=== PATIENT | female | born 1980 | race Caucasian/White ===

== ENCOUNTER 2017-08-02 18:41 | Emergency (ER) | payer OTHER ==
[2017-08-02 18:55] VITALS: BP 138/82; PULSE 98; TEMP 98.4; BMI 27.6
--- NOTE | 2017-08-02 18:59 | PDOC ---
History of Present Illness - General Chief Complaint: Chest Pain Stated Complaint: CHEST PAIN/muscle pain Time Seen by Provider: 08/02/17 18:57 History Source: Patient Exam Limitations: No Limitations - History of Present Illness Initial Comments: 08/02/17 18:59 CHIEF COMPLAINT: Chest pain HISTORY OF PRESENT ILLNESS: This is a 36 year old female with a history of BPD and asthma who presents for evaluation of 3 days of chest pain. Pain started while at rest. It is constant but worse with movement or deep breathing. She has productive cough. She denies shortness of breath. No calf pain, recent travel/trauma/surgery, hemoptysis, OCP use, cigarette smoking, or family/personal history of DVT/PE. V/s on arrival are notable for P 98. Past History - Past Medical History Allergies/Adverse Reactions: Allergies Allergy/AdvReac Type Severity Reaction Status Date / Time No Known Allergies Allergy Verified 08/02/17 18:55 Home Medications: Ambulatory Orders Albuterol Sulfate Inhaler - [Ventolin HFA Inhaler -] 1 - 2 inh PO DAILY PRN 09/14 Quetiapine Fumarate [Seroquel -] 100 mg PO HS 04/10/14 [place] Citrate [[place]] 8 meq PO ASDIR 08/02/17 Lorazepam [Ativan] 1 mg PO ASDIR 08/02/17 Miconazole/Cleanser 17 On Wipe [Monistat 3 Combo Pack] 1 each VG HS #1 kit 08/02 Asthma: Yes Psychiatric Problems: Yes (bipolar,anxiety) - Reproductive History (#): 2 Para: 0 - Psycho/Social/Smoking Cessation Hx Anxiety: No Suicidal Ideation: No Smoking Status: No Smoking History: Never smoked Number of Cigarettes Smoked Daily: 0 Information on smoking cessation initiated: No Hx Alcohol Use: No Drug/Substance Use Hx: No Substance Use Type: None Review of Systems - Review of Systems Constitutional: No: Chills, Fever, Unintentional Wgt. Loss Respiratory: Yes: Cough. No: Shortness of Breath, Wheezing, Hemoptysis Cardiac (ROS): Yes: Chest Pain. No: Lightheadedness, Palpitations ABD/GI: No: Symptoms Reported : Yes: Discharge (white) *Physical Exam - Vital Signs Last Vital Signs Temp Pulse Resp BP Pulse Ox 98.4 F 98 H 18 138/82 100 08/02/17 18:53 08/02/17 18:53 08/02/17 18:53 08/02/17 18:53 08/02/17 18:53 - Physical Exam General Appearance: Yes: Nourished, Moderate Distress Respiratory/Chest: positive: Lungs Clear, Normal Breath Sounds. negative: Respiratory Distress Cardiovascular: positive: Regular Rate, S1, S2 Female Pelvic Exam: positive: normal external exam, discharge (thick, white, nonmalodorous). negative: adnexal tenderness Gastrointestinal/Abdominal: positive: Soft. negative: Distended, Tenderness Heart Score/ECG Review - History History: Slightly suspicious - Electrocardiogram EKG: Normal - Age Age: </= 45 - Risk Factors Based on the list above the patient has:: No risk factors known - ECG Intrepretation Rhythm: Regular Rhythm Comment:: 08/02/17 19:00 NSR at 98bpm ED Treatment Course - RADIOLOGY Radiology Studies Ordered: Category Date Time Status CHEST PA & LAT [RAD] Stat Radiology 08/02/17 18:58 Ordered Medical Decision Making - Medical Decision Making 08/02/17 19:44 A/P: 36 year old female with chest pain, pleuritic and reproducible. -EKG: NSR 98bpm -CXR -PERC negative -Toradol for pain -Diflucan for vaginal candidiasis *DC/Admit/Observation/Transfer Diagnosis at time of Disposition: Atypical chest pain - Discharge Dispostion Disposition: HOME Condition at time of disposition: Stable - Prescriptions Prescriptions: Miconazole/Cleanser 17 On Wipe [Monistat 3 Combo Pack] 1 each VG HS #1 kit - Referrals Referrals: Marcelle Jameson MD [Staff Physician] - Call tomorrow - Patient Instructions Printed Discharge Instructions: DI for Atypical Chest Pain Additional Instructions: -Use Monistat as prescribed for yeast infection -Take ibuprofen as prescribed for pain -Follow up with your primary care doctor, or the doctor listed above, early next week -Return here for difficulty breathing, worsening chest pain, coughing up blood, fainting/near fainting, or any other concerning symptoms
[2017-08-02] MEDS ORDERED: KETOROLAC TROMETHAMINE 30 MG/1 ML VIAL IM ONE (19:35)
[2017-08-02 19:47] LABS: URINE APPEARANCE CLEAR; URINE BILIRUBIN 1+ (NEGATIVE); URINE COLOR YELLOW; URINE GLUCOSE (UA) NEGATIVE (NEGATIVE); URINE KETONE TRACE (NEGATIVE); URINE LEUK ESTERASE NEGATIVE (NEGATIVE); URINE NITRITE NEGATIVE (NEGATIVE); URINE PROTEIN TRACE (NEGATIVE); URINE UROBILINOGEN 0.2 mg/dL (0.2-1.0)
[2017-08-02 19:50] LABS: URINE BLOOD 1+ (NEGATIVE)
[2017-08-02 19:58] LABS: URINE MUCUS MANY; URINE RBC 5 /hpf (0-3); URINE WBC 7 /hpf (3-5)
[2017-08-02] MEDS ORDERED: KETOROLAC TROMETHAMINE 30 MG/1 ML VIAL ONE (20:06)
--- NOTE | 2017-08-03 13:06 | EKG ---
Test Reason : Blood Pressure : / mmHG Vent. Rate : 098 BPM Atrial Rate : 098 BPM P-R Int : 130 ms QRS Dur : 082 ms QT Int : 338 ms P-R-T Axes : 066 078 040 degrees QTc Int : 431 ms NORMAL SINUS RHYTHM LEFT ATRIAL ABNORMALITY NO PREVIOUS ECGS AVAILABLE REPEAT EKG IF CLINICALLY INDICATED Confirmed by ALVARO HENRY MD ([id number]) on 08/03/2017 1:05:57 PM Referred By: Confirmed By:ALVARO HENRY MD
--- NOTE | 2017-08-05 10:14 | PDOC ---
Patient Follow-up (Call Back) - Post ED Follow - Up Condition at time of discharge: Stable Disposition at time of original discharge: HOME Signs/Symptoms Improved: No - Disposition Rx Needed: Yes Additional Instructions/Notes: Patient seen for vaginal discharge and was told to take cream for treatment of yeast infection. Patient called at home and states discharge continues but denies worsening symptoms. Based on patient's genital culture which showed increased pH and clue cells suggestive of DVT. Patient be given a prescription for Flagyl. Prescription sent to [facility]. Patient made aware.
== END 2017-08-02 20:22 | disposition home or self-care (01) ==
LOC: JERFT 18:41
PROC: 3E0233Z Introduction of Anti-inflammatory into Muscle, Percutaneous Approach (ICD-10-PCS; principal; 2017-08-02)
DX: R07.89 Other chest pain (principal); B37.3 Candidiasis of vulva and vagina
CPT/HCPCS: 71020-TC; 81003; 81015; 84703; 87070; 87205; 93005; 93010; 96372; 99281-25

== ENCOUNTER 2018-01-17 17:49 | Emergency (ER) | payer OTHER ==
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
[2018-01-17 18:20] VITALS: BP 111/65; PULSE 101; TEMP 98.2; BMI 24.5
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
== END 2018-01-17 19:42 | disposition home or self-care (01) ==
LOC: JERFT 17:49
PROC: 2W24X4Z Dressing of Chest Wall using Bandage (ICD-10-PCS; principal; 2018-01-17)
DX: T21.21XA Burn of second degree of chest wall, initial encounter (principal); T31.0 Burns involving less than 10% of body surface; X08.8XXA Exposure to other specified smoke, fire and flames, initial encounter; Y93.89 Activity, other specified; Y92.89 Other specified places as the place of occurrence of the external cause; Y99.8 Other external cause status
CPT/HCPCS: 99281-25

== ENCOUNTER 2019-07-31 18:17 | Emergency (ER) | payer OTHER ==
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
[2019-07-31 18:47] VITALS: BP 116/63; PULSE 111; TEMP 98.2; BMI 25.4
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
[2019-07-31] MEDS ORDERED: IBUPROFEN 600 MG TABLET (FP) PO ONE ×2 (19:09→20:06)
== END 2019-07-31 20:05 | disposition home or self-care (01) ==
LOC: JERFT 18:17
DX: M54.5 Low back pain (principal); V43.61XA Car passenger injured in collision with sport utility vehicle in traffic accident, initial encounter; Y92.414 Local residential or business street as the place of occurrence of the external cause; Y93.89 Activity, other specified; Y99.8 Other external cause status
CPT/HCPCS: 99281-25

== ENCOUNTER 2022-01-28 14:50 | Emergency (ER) | payer OTHER ==
[2022-01-28 14:54] VITALS: BP 116/62; TEMP 97; BMI 27.4
[2022-01-28] MEDS ORDERED: LIDOCAINE 5% TOPICAL PATCH TP ONE (15:25)
[2022-01-28] MEDS ORDERED: KETOROLAC TROMETHAMINE 30 MG/1 ML VIAL IM ONE (15:25)
[2022-01-28] MEDS ORDERED: CYCLOBENZAPRINE HCL 10 MG TABLET (FP) PO ONE (15:26)
[2022-01-28] MEDS ORDERED: KETOROLAC TROMETHAMINE 30 MG/1 ML VIAL ONE (15:38)
[2022-01-28] MEDS ORDERED: LIDOCAINE 5% TOPICAL PATCH ONE (15:38)
[2022-01-28] MEDS ORDERED: CYCLOBENZAPRINE HCL 10 MG TABLET (FP) ONE (15:38)
[2022-01-28 16:30] VITALS: PULSE 102
[2022-01-28] MEDS ORDERED: LIDOCAINE PATCH REMOVAL MC SCH (22:00)
== END 2022-01-28 16:40 | disposition home or self-care (01) ==
LOC: JER 14:50
PROC: 3E0233Z Introduction of Anti-inflammatory into Muscle, Percutaneous Approach (ICD-10-PCS; principal; 2022-01-28)
DX: M54.42 Lumbago with sciatica, left side (principal)
CPT/HCPCS: 96372; 99284-25